=== PATIENT | female | born 1990 | race Caucasian/White ===

== ENCOUNTER 2017-05-30 07:15 | Emergency (ER) | payer OTHER ==
[2017-05-30 07:28] VITALS: BP 102/60
--- NOTE | 2017-05-30 08:24 | UC ---
Skin Complaint HPI - HPI Summary HPI Summary: per senior talent management consultant "Bee sting right third toe pedal aspect last week; initial erythema, pain, and swelling resolving over two days. "Hard" sensation, swollen , and tender right third and fourth toes and erythema, pruritic, and swollen area (in same pattern as bee sting) to top of foot worsening since last night. Denies oral swelling, dysphagia, SOB, or nausea. Tried Benadryl without improvement. Patient is a homemaker. PCP [facility]." She has had bee stings before but has only had local reactions, never any mucosal sx or GI sx or hypotension. will be going camping again next week. no fevers, chills or night sweats. foot feels slightly swollen. - History of Current Complaint Chief Complaint: UCAllergicReaction Time Seen by Provider: 05/30/17 07:29 Stated Complaint: BEE STING Hx Last Menstrual Period: 05/02/17 - Allergy/Home Medications Allergies/Adverse Reactions: Allergies Allergy/AdvReac Type Severity Reaction Status Date / Time Erythromycin Allergy Severe Swelling Verified 05/30/17 07:23 Of Face,Lips,& Throat Amoxicillin Allergy Intermediate Hives Verified 05/30/17 07:23 Home Medications: Home Medications Diphenhydramine HCl [Benadryl Allergy Child 12.5 MG/5 ML LIQ] 25 mg PO Q6H PRN 05/30/17 [History Confirmed 05/30/17] Review of Systems Constitutional: Negative Skin: Rash Eyes: Negative ENT: Negative Respiratory: Negative Cardiovascular: Negative Gastrointestinal: Negative Genitourinary: Negative Motor: Negative Neurovascular: Negative Musculoskeletal: Negative Neurological: Negative Psychological: Negative All Other Systems Reviewed And Are Negative: Yes PMH/Surg Hx/FS Hx/Imm Hx Previously Healthy: Yes - Surgical History Surgical History: None - Family History Known Family History: Positive: Hypertension - Social History Alcohol Use: Rare Substance Use Type: None Smoking Status (MU): Never Smoked Tobacco - Immunization History Most Recent Influenza Vaccination: 08/10/13 Most Recent Tetanus Shot: 12/14/13 Most Recent Pneumonia Vaccination: none Physical Exam Triage Information Reviewed: Yes Appearance: Well-Appearing, No Pain Distress, Well-Nourished - very pleasant Vital Signs: Initial Vital Signs Temp 98.8 F 05/30/17 07:20 Pulse 80 05/30/17 07:20 Resp 16 05/30/17 07:20 BP 102/60 05/30/17 07:20 Pulse Ox 100 05/30/17 07:20 Vital Signs Reviewed: Yes Eye Exam: Normal ENT Exam: Normal Dental Exam: Normal Neck exam: Normal Neck: Positive: Supple, Nontender, No Lymphadenopathy Respiratory Exam: Normal Respiratory: Positive: Lungs clear, Normal breath sounds, No respiratory distress Cardiovascular Exam: Normal Cardiovascular: Positive: RRR, No Murmur, Pulses Normal Abdomen Description: Positive: Nontender, Soft Musculoskeletal Exam: Normal Neurological Exam: Normal Psychological Exam: Normal Skin: Positive: rashes - dorsal distal right foot with tangerine size faint blanching erythema, maculo-papular. not warm, no discharge. skin is intact. CR brisk. Course/Dx - Course Course Of Treatment: We discusse risks of prednisone including but not limited to anxiety, agitation, insomnia, GI upset, elevated blood pressures and blood sugar readings, adrenal crisis and avascular necrosis of the hip. Possible delayed allerguic reaction to bee sting. Epi pen rx given and clear instructions given to dose with benadrly and call 911. - Differential Diagnoses - Skin Complaint Differential Diagnoses: Anaphylaxis, Cellulitis, Drug Rash, Eczema, Urticaria - Diagnoses Provider Diagnoses: urticaria Discharge - Discharge Plan Condition: Stable Disposition: HOME Prescriptions: Epinephrine [Epipen 2-Lan] 0.3 mg IM DAILY #1 inj Methylprednisolone [Medrol Dosepak 4 MG*] 4 mg PO DAILY #1 lan Patient Education Materials: Insect Bite or Sting (ED) Referrals: Brayan Chauhan MD [Primary Care Provider] - 3 Days Additional Instructions: Take the prednisone as we discussed. Make sure to take cetirizine 10mgs daily and ranitidine 150mgs twice per day for 14 days. I have also given you a prescription for an epi pen. Instructions and more education is on the patient information sheet I gave you.
== END 2017-05-30 08:37 | disposition home or self-care (01) ==
LOC: UCCORT 07:15
DX: L50.9 Urticaria, unspecified (principal); Z88.1 Allergy status to other antibiotic agents
CPT/HCPCS: 99212; G0463